=== PATIENT | female | born 1935 | race Asian ===

== ENCOUNTER 2019-06-22 15:48 | Inpatient (IN) | payer OTHER, MEDICAID ==
[~2019-06-22] VITALS: Ht 149.9 cm; Wt 45.4 kg
--- NOTE | 2019-06-22 14:15 | NUR ---
ADMIT NOTE The patient, MARGAUX KAPLAN, 83 y/o, F admitted by CLINTON LOPEZ MD, was given written information regarding hospital policies, unit procedures and contact persons. No valuable were checked in and daughter took everything home Patient awake, oriented x1. Oriented pt to bed, room, and call light. Daughter at bedside. No acute distress noted. Non-labored breathing. Clear lungs. Vital signs stable. Contracted on right leg. Bilateral weakness on upper extremities. Left leg sided weakness. Hemorroid present on anal area. 100% erythema. Skin intact. No odor. Discussed plan of care. All needs met. Call light in reach. Bed in lowest and locked position. Bed alarm on. Close to nursing station. Fall and aspiration precautions in place. Continue to monitor. Addendum: 06/22/19 at 1932 by Flora Maciel RN WRONG TIME, TIME SHOULD BE 1615
--- NOTE | 2019-06-22 16:30 | NUR ---
PAGED DR LOPEZ. WAITING FOR CALL BACK.
--- NOTE | 2019-06-22 17:00 | NUR ---
IV LINE INSERTED #22 G IV placed to LEFT FOREARM. Use of asceptic technique. Opsite placed over site. Blood return noted. FLUSHES FREELY. No evidence of infiltration noted. Patient tolerated. No acute distress noted.
[2019-06-22 17:21] VITALS: BP_SYST 118
--- NOTE | 2019-06-22 18:00 | NUR ---
PAGED DR LOPEZ. WEB MERCHANT DOCTOR PAGED. AWAITING FOR CALL BACK.
[2019-06-22] MEDS ORDERED: DENO60DI SQ (18:46)
[2019-06-22] MEDS ORDERED: FAMO20TA8 PO (18:46)
[2019-06-22] MEDS ORDERED: CLOP75TA32 PO (18:46)
[2019-06-22] MEDS ORDERED: ASPI-1155 PO (18:46)
[2019-06-22] MEDS ORDERED: ACET-73 PO (18:46)
[2019-06-22] MEDS ORDERED: ALLO100T PO (18:46)
[2019-06-22] MEDS ORDERED: LINA5TAB2 PO (18:46)
[2019-06-22] MEDS ORDERED: LIP40 PO (18:46)
[2019-06-22] MEDS ORDERED: INSU100V7 SUBCUT (18:46)
[2019-06-22] MEDS ORDERED: GLIM1TAB2 PO (18:46)
[2019-06-22] MEDS ORDERED: ANT30 PO (18:46)
[2019-06-22] MEDS ORDERED: ESCI10TA PO (18:46)
[2019-06-22] MEDS ORDERED: LISI2.5T48 PO (18:46)
[2019-06-22] MEDS ORDERED: CRAN200C PO (18:46)
[2019-06-22] MEDS ORDERED: MELA3TAB64 PO (18:46)
[2019-06-22] MEDS ORDERED: METO25TA6 PO (18:46)
[2019-06-22] MEDS ORDERED: MEMA21CA PO (18:46)
--- NOTE | 2019-06-22 19:00 | NUR ---
CLOSING NOTE PT AWAKE IN BED. DAUGHTER AT BEDSIDE. NO ACUTE DISTRESS NOTED. ASSISTED IN PERINEAL CARE. TOLERATED WELL. CHANGED LINENS. ALL NEEDS MET. CALL LIGHT IN REACH. BED ALARM ON. FALL AND ASPIRATION PRECAUTIONS IN PLACE. ENDORSED TO [place].
--- NOTE | 2019-06-22 19:15 | NUR ---
OPENING NOTES Late entry due to patient care. Bedside report received from dayshift nurse. Patient received lying in bed, eyes closed, appears to be asleep. No s/s of acute distress noted. Breathing even and unlabored. Patient's daughter, Aurelia, at bedside. Call light with patient. Bed alarm on. Will continue to monitor.
[2019-06-22 20:00] VITALS: BP_SYST 130
--- NOTE | 2019-06-22 20:45 | NUR ---
SPOKE WITH DR. LOPEZ Talked to Dr. Lopez, orders given to start NS at 70 ml/hr. Dr. Lopez stated she will put in the rest of the orders. Will carry out.
[2019-06-22] MEDS: NACL 0.9% 1,000 ML IV SCH (21:13)
--- NOTE | 2019-06-22 21:20 | NUR ---
INCONTINENT CARE/IVF RN assisted patient's daughter with incontinent care. Patient tolerated well. IV bag hung at this time, IVF infusing well. IV site patent, no signs of infiltration or infection noted. All needs met. Call light with patient. Bed alarm on. Will continue to monitor.
[2019-06-22] MEDS ORDERED: MAG-AL HYDROX/SIMETH 30 ML UDC PO SCH (22:30)
[2019-06-22] MEDS ORDERED: ALBUTEROL SULFATE 0.083% 2.5 MG/3 ML VIAL.NEB INH PRN (22:30)
--- NOTE | 2019-06-22 23:00 | NUR ---
ROUNDS Patient asleep. No s/s of acute distress noted. Breathing even and unlabored. IVF infusing well. Call light with patient. Bed alarm on. Will continue to monitor.
[2019-06-22 23:20] VITALS: BP_SYST 130
[2019-06-23] VITALS: BP_SYST 128
--- NOTE | 2019-06-23 01:00 | NUR ---
ROUNDS Patient in bed sleeping at this time. No signs of discomfort noted. Chest rise and fall even bilaterally. IVF infusing well. Call light with patient. Will continue to monitor.
--- NOTE | 2019-06-23 03:00 | NUR ---
IFEOMA CARE Patient cleaned by daughter, assisted by RN. All needs met at this time. Patient tolerated well. Call light with patient. Will continue to monitor.
--- NOTE | 2019-06-23 05:00 | NUR ---
ROUNDS Patient sleeping at this time. No signs of discomfort noted. Chest rise and fall even bilaterally. Call light with patient. Will continue to monitor.
--- NOTE | 2019-06-23 05:48 | NUR ---
SPEECH THERAPY STANLEY CALLED GABY martin)[phone] AND LEFT A VOICEMAIL WITH CALL BACK NUMBER.
[2019-06-23] MEDS: MEMANTINE HCL 5 MG TABLET PO SCH ×3 (06:21→21:28)
--- NOTE | 2019-06-23 06:41 | NUR ---
CLOSING NOTES Patient in bed, awake, no s/s of acute distress noted. Breathing even and unlabored. IVF infusing well. IV site is patent, no signs of infiltration or infection noted. Skin warm and dry to touch, no s/s of hypoglycemia noted. All needs met throughout the shift. Fall and safety precautions maintained throughout shift. Will continue to monitor until patient care is endorsed to oncoming dayshift nurse.
[2019-06-23 07:20] LABS: BASOPHILS # (AUTO) 0.1 K/uL (0.0-0.2); BASOPHILS % (AUTO) 0.5 % (0.0-2.0); EOSINOPHILS # (AUTO) 0.7 K/uL (0.0-0.4); EOSINOPHILS % (AUTO) 5.7 % (0.0-4.0); HEMATOCRIT 30.3 % (36-48); HEMOGLOBIN 9.8 g/dL (12.0-16.0); LYMPHOCYTES # (AUTO) 1.4 K/uL (1.0-5.5); LYMPHOCYTES % (AUTO) 11.4 % (20.5-51.5); MEAN CORPUSCULAR HEMOGLOBIN 29 pg (27-31); MEAN CORPUSCULAR HGB CONC 32 % (32-36); MEAN CORPUSCULAR VOLUME 89 fL (79.0-98.0); MONOCYTES # (AUTO) 0.7 K/uL (0.0-1.0); MONOCYTES % (AUTO) 5.6 % (1.7-9.3); NEUTROPHILS # (AUTO) 9.3 K/uL (1.8-7.7); NEUTROPHILS % (AUTO) 76.8 % (40.0-70.0); PLATELET COUNT (AUTO) 267 K/uL (130-430); RED CELL DISTRIBUTION WIDTH 15.8 % (9.0-15.0); WHITE BLOOD COUNT (AUTO) 12.1 K/uL (4.8-10.8)
--- NOTE | 2019-06-23 07:30 | NUR ---
Opening Notes Patient received lying comfortably in her bed, alert, awake and verbally responsive, respiration even and unlabored, daughter at bedside, denies any pain or discomfort at this time. IVF infusing well. Fall precaution observed, bed at lowest position, bed alarm on. Call light within the reach.
[2019-06-23 07:43] LABS: ALANINE AMINOTRANSFERASE 34 U/L (12-78); ALBUMIN 2.2 g/dL (3.4-4.8); ANION GAP 10 (5-15); ASPARTATE AMINOTRANSFERASE 26 U/L (10-37); CALCIUM 7.1 mg/dL (8.4-11.0); CHLORIDE 114 mmol/L (98-107); CREATININE 1.17 mg/dL (0.55-1.30); GLUCOSE 77 mg/dL (70-99); POTASSIUM 3.2 mmol/L (3.5-5.1); SODIUM SERUM 142 mmol/L (136-145); TOTAL BILIRUBIN 0.2 mg/dL (0.0-1.0); UREA NITROGEN, BLOOD 19 mg/dL (8-21)
[2019-06-23 08:06] VITALS: BP_SYST 141
--- NOTE | 2019-06-23 09:30 | NUR ---
RN ROUNDS Patient educated on medication usage and its potential side effects, all due medications given as ordered, well tolerated. Call light within the reach.
[2019-06-23] MEDS: CLOPIDOGREL BISULFATE 75 MG TABLET PO SCH (09:32)
[2019-06-23] MEDS: FAMOTIDINE 20 MG TABLET PO SCH (09:32)
[2019-06-23] MEDS: ALLOPURINOL 100 MG TABLET (ZYLOPRIM) PO SCH (09:32)
[2019-06-23] MEDS: ASPIRIN 81 MG TAB.CHEW PO SCH (09:32)
[2019-06-23] MEDS: CITALOPRAM HYDROBROMIDE 20 MG TABLET PO SCH (09:32)
[2019-06-23] MEDS: METOPROLOL TARTRATE 25 MG TABLET PO SCH (09:33)
--- NOTE | 2019-06-23 09:54 | NUR ---
Nutrition Update Jose Scale 13 noted. Pt admitted for dehydration Diet: batsheva FERREIRA BMI: 20.2 kg/m2 RD to follow per nutrition care standards.
[2019-06-23] MEDS: NACL 0.9% 1,000 ML IV SCH ×2 (10:59→21:40)
[2019-06-23 11:27] LABS: BILIRUBIN,URINE NEGATIVE (NEGATIVE); BLOOD, URINE 2+ (NEGATIVE); CLARITY/URINE CLOUDY (CLEAR); COLOR,URINE YELLOW (YELLOW); GLUCOSE,URINE NEGATIVE (NEGATIVE); KETONES,URINE NEGATIVE (NEGATIVE); LEUKOCYTE ESTERASE ,URINE 2+ (NEGATIVE); NITRITE, URINE NEGATIVE (NEGATIVE); PH,URINE 6.5 (5.0-8.0); PROTEIN URINE 2+ (NEGATIVE); UROBILINOGEN,URINE 0.2 (0.2-1.0)
--- NOTE | 2019-06-23 11:30 | NUR ---
blood sugar check patient's blood sugar is 149, no insulin coverage needed. No signs of hypoglycemia noted. Call light within the reach.
[2019-06-23 11:34] LABS: BACTERIA,URINE MODERATE /HPF (None Seen); WBC,URINE >100 /HPF (0-3)
[2019-06-23 12:20] VITALS: BP_SYST 129
--- NOTE | 2019-06-23 13:30 | NUR ---
RN ROUNDS Patient resting well, talking to her daughter at bedside, denies any pain or discomfort at this time. IVF infusing well. Call light within the reach.
[2019-06-23] MEDS ORDERED: POTASSIUM CHLORIDE 20 MEQ TAB.PRT.SR PO ONE (13:45)
--- NOTE | 2019-06-23 14:40 | NUR ---
CONSULTATION PAGED/CALLED Reason for Consultation: UTI Person Who was Notified: SPOKE WITH KENNETH FROM EXCHANGE . Consulting Physician: Porcelain Waxer Specialty: ID Ordering Physician: Debo MURGUIA
--- NOTE | 2019-06-23 15:30 | NUR ---
RN ROUNDS Patient remain to be alert, awake and verbally responsive, noted with confusion due to dementia, denies any pain or discomfort at this time. Daughter at bedside, call light within the reach.
[2019-06-23 16:15] VITALS: BP_SYST 136
--- NOTE | 2019-06-23 17:30 | NUR ---
Blood sugar check patient's blood sugar is 118, no insulin coverage noted. Call light within the reach.
--- NOTE | 2019-06-23 18:32 | NUR ---
Closing Notes Patient remain to be alert, awake and verbally responsive, denies any pain or discomfort at this time. IVF infusing well. Respiration even and unlabored. Daughter at bedside. Fall precaution observed. Call light within the reach. Will endorse to the next shift.
[2019-06-23] MEDS ORDERED: DIPHENHYDRAMINE INJ 50 MG/ML VIAL IVP SCH (18:45)
--- NOTE | 2019-06-23 19:15 | NUR ---
OPENING NOTES Late entry due to patient care. Bedside report received from dayshift nurse. Patient received lying in bed, awake, confused. No s/s of acute distress noted. Breathing even and unlabored. IVF infusing well. HOB raised. Patient's daughter, Aurelia, at bedside. Call light with patient. Bed alarm on. Will continue to monitor.
[2019-06-23 20:00] VITALS: BP_SYST 143
[2019-06-23] MEDS ORDERED: CEFEPIME 1 GM in D5W 50 ML IV SCH (21:00)
[2019-06-23] MEDS ORDERED: CEFEPIME 1 GM/VIAL (MAXIPIME) ONE (21:10)
[2019-06-23] MEDS: ATORVASTATIN 20 MG TABLET PO SCH (21:28)
--- NOTE | 2019-06-23 21:28 | NUR ---
ROUNDS/MAXIPIME ADMINISTERED Maxipime administered at this time per order. Patient and patient's daughter educated on its purpose and benefits and side effects. Patient's daughter verbalized understanding. Will monitor for reactions. Patient in bed, confused, awake, no s/s of acute distress, calm. Breathing even and unlabored. Call light with patient. Bed alarm on. Will continue to monitor.
--- NOTE | 2019-06-23 23:15 | NUR ---
FINISHED ANTIBIOTIC/PERICARE Antibiotic finished, no adverse reactions noted. Breathing even and unlabored. No s/s of acute distress noted. IVF infusing well. Phyllis care done by CHILD PSYCHOLOGY TEACHER and RN at this time, patient tolerated well. All needs met. Bed alarm on. Call light with patient. Will continue to monitor.
[2019-06-24 00:52] VITALS: BP_SYST 106
--- NOTE | 2019-06-24 01:00 | NUR ---
ROUNDS Patient asleep at this time. No signs of discomfort noted. Chest rise and fall even bilaterally. IVF infusing well. Bed alarm on. Will continue to monitor.
--- NOTE | 2019-06-24 03:00 | NUR ---
INCONTINENT CARE Incontinent care done by RN and CONTINUOUS IMPROVEMENT MANAGER. Patient tolerated well. All needs met. Bed alarm on. Will continue to monitor.
[2019-06-24] MEDS: MEMANTINE HCL 5 MG TABLET PO SCH ×3 (06:07→21:12)
--- NOTE | 2019-06-24 06:44 | NUR ---
CLOSING NOTES Patient in bed sleeping. No s/s of acute distress noted. Breathing even and unlabored. IVF infusing well. Skin warm and dry to touch. All needs met throughout shift. Fall and safety precautions maintained throughout shift. Will continue to monitor until patient care is endorsed to oncoming dayshift nurse.
--- NOTE | 2019-06-24 07:30 | NUR ---
Opening Notes Patient received lying comfortably in bed, alert, awake and verbally responsive, denies any pain or discomfort. IVF infusing well. Daughter at bedside. Call light within the reach.
[2019-06-24 08:55] LABS: BASOPHILS # (AUTO) 0.1 K/uL (0.0-0.2); BASOPHILS % (AUTO) 0.5 % (0.0-2.0); EOSINOPHILS # (AUTO) 0.5 K/uL (0.0-0.4); EOSINOPHILS % (AUTO) 4.3 % (0.0-4.0); HEMATOCRIT 29.1 % (36-48); HEMOGLOBIN 9.5 g/dL (12.0-16.0); LYMPHOCYTES % (AUTO) 9.9 % (20.5-51.5); MEAN CORPUSCULAR HEMOGLOBIN 29 pg (27-31); MEAN CORPUSCULAR HGB CONC 33 % (32-36); MEAN CORPUSCULAR VOLUME 90 fL (79.0-98.0); MONOCYTES # (AUTO) 0.6 K/uL (0.0-1.0); MONOCYTES % (AUTO) 5.7 % (1.7-9.3); NEUTROPHILS # (AUTO) 8.3 K/uL (1.8-7.7); NEUTROPHILS % (AUTO) 79.6 % (40.0-70.0); PLATELET COUNT (AUTO) 249 K/uL (130-430); RED BLOOD CELL COUNT(AUTO) 3.25 MIL/uL (4.2-6.2); WHITE BLOOD COUNT (AUTO) 10.4 K/uL (4.8-10.8)
[2019-06-24] MEDS: CITALOPRAM HYDROBROMIDE 20 MG TABLET PO SCH (08:55)
[2019-06-24] MEDS: ALLOPURINOL 100 MG TABLET (ZYLOPRIM) PO SCH (08:55)
[2019-06-24] MEDS: ASPIRIN 81 MG TAB.CHEW PO SCH (08:55)
[2019-06-24] MEDS: FAMOTIDINE 20 MG TABLET PO SCH (08:55)
[2019-06-24] MEDS: CLOPIDOGREL BISULFATE 75 MG TABLET PO SCH (08:55)
[2019-06-24] MEDS: METOPROLOL TARTRATE 25 MG TABLET PO SCH (08:56)
--- NOTE | 2019-06-24 09:00 | NUR ---
Medication administration educated patient on medication usage and its potential side effects, all due medications given as ordered, well tolerated, no signs and symptoms of adverse reactions noted at this time. Call light within the reach. Personal sitter at bedside.
[2019-06-24] MEDS: CEFEPIME 1 GM in D5W 50 ML IV SCH ×2 (09:11→21:12)
[2019-06-24 09:44] LABS: ANION GAP 10 (5-15); C-REACTIVE PROTEIN QUANT 0.9 mg/dL (0-0.5); CHLORIDE 115 mmol/L (98-107); CREATININE 1.15 mg/dL (0.55-1.30); GLUCOSE 130 mg/dL (70-99); POTASSIUM 3.4 mmol/L (3.5-5.1); SODIUM SERUM 140 mmol/L (136-145); UREA NITROGEN, BLOOD 13 mg/dL (8-21)
[2019-06-24 09:48] LABS: CALCIUM 6.8 mg/dL (8.4-11.0)
[2019-06-24 10:08] LABS: ERYTHROCYTE SEDIMENTATION RATE 59 MM/HR (0-20)
--- NOTE | 2019-06-24 10:26 | NUR ---
Low calcium level, Dr. Arzola aware Dr. Arzola at unit, notified regarding low calcium level with new order for calcium carbonate 1000mg BID, order read back, verified, noted and carried out.
[2019-06-24] MEDS ORDERED: CALCIUM CARBONATE 500 MG/ TAB.CHEW PO ONE (10:30)
[2019-06-24] MEDS ORDERED: GLUCOSE 15 GM GEL (in 37.5 GM TUBE) PO PRN (11:00)
[2019-06-24] MEDS ORDERED: D5W 1,000 ML IV PRN (11:00)
[2019-06-24] MEDS ORDERED: DEXTROSE 50%-WATER 50 ML DISP.SYRIN IVP PRN (11:00)
--- NOTE | 2019-06-24 12:00 | NUR ---
RN ROUNDS Patient remain to be alert, awake and verbally responsive, denies any pain or discomfort at this time. IVF infusing well. Personal sitter at bedside. Call light within the reach.
[2019-06-24 12:11] VITALS: BP_SYST 139
--- NOTE | 2019-06-24 14:30 | NUR ---
RN ROUNDS Resting well, respiration even and unlabored. IVF infusing well. No moaning or grimacing noted. No signs and symptoms of hypoglycemia or hyperglycemia noted. Call light within the reach.
[2019-06-24] MEDS: NACL 0.9% 1,000 ML IV SCH (14:31)
[2019-06-24 16:20] VITALS: BP_SYST 156
--- NOTE | 2019-06-24 16:30 | NUR ---
RN ROUNDS Patient respiration even and unlabored. Denies any pain or discomfort. IVF infusing well. Call light within the reach.
--- NOTE | 2019-06-24 19:15 | NUR ---
OPENING NOTES Bedside report received from dayshift nurse. Patient received lying in bed, awake, talking to caregiver. No s/s of acute distress noted. Breathing even and unlabored. IVF infusing well, IV site patent, no signs of infiltration or infection noted. Skin warm and dry to touch. SCDs attached and operating. Call light with patient. Bed alarm on. Bed is locked and at lowest position. Will continue to monitor.
--- NOTE | 2019-06-24 19:23 | NUR ---
Closing Notes Patient alert, awake and verbally responsive. Denies any pain or discomfort at this time. IVF infusing well. Respiration even and unlabored. Fall precaution observed, personal sitter at bedside. Call light within the reach. SBAR report given to damage cutterslot shift manager at bedside.
[2019-06-24 20:00] VITALS: BP_SYST 140
[2019-06-24] MEDS: ATORVASTATIN 20 MG TABLET PO SCH (21:12)
[2019-06-24] MEDS: CALCIUM CARBONATE 500 MG/ TAB.CHEW PO SCH (21:12)
[2019-06-24] MEDS: INSULIN LISPRO SLIDING SCALE 100 UNITS/ML VIAL (humaLOG) SUBCUT PRN (21:13)
--- NOTE | 2019-06-24 21:13 | NUR ---
MEDPASS/REFUSED INSULIN SCHEDULED MEDICATIONS GIVEN AT THIS TIME, PATIENT TOLERATED WELL. ACCUCHECK DONE, BS AT 172, PATIENT'S DAUGHTER REFUSED INSULIN AT THIS TIME, STATING SHE DIDNT HAVE MUCH FOR DINNER AND DOSE NOT WANT THE SUGAR TO GO DOWN TOO MUCH. ALL NEEDS MET AT THIS TIME. CALL LIGHT WITH PATIENT. BED ALARM ON. WILL CONTINUE TO MONITOR.
--- NOTE | 2019-06-24 23:00 | NUR ---
ROUNDS Patient in bed asleep at this time. No s/s of acute distress noted. Breathing even and unlabored. IVF infusing well. Patient's daughter sleeping at bedside. Call light with patient. Bed alarm on. SCDs attached and operating. Will continue to monitor.
[2019-06-25] VITALS: BP_SYST 145
--- NOTE | 2019-06-25 01:00 | NUR ---
PERICARE Patient received rodger care by RN at this time. Patient tolerated well. All needs met. IVF infusing well. Call light with patient. Bed alarm on. Will continue to monitor.
--- NOTE | 2019-06-25 03:00 | NUR ---
ROUNDS Patient in bed, sleeping comfortably at this time. No s/s of acute distress noted. Breathing even and unlabored. IVF infusing well. SCDs attached and operating. Bed alarm on. Will continue to monitor.
--- NOTE | 2019-06-25 04:58 | NUR ---
PERICARE Phyllis care done at this time by RN. Patient tolerated well. All needs met. Call light with patient. Bed alarm on. Will continue to monitor.
[2019-06-25] MEDS: NACL 0.9% 1,000 ML IV SCH ×3 (06:17→22:09)
[2019-06-25] MEDS: MEMANTINE HCL 5 MG TABLET PO SCH ×3 (06:17→22:05)
--- NOTE | 2019-06-25 06:29 | NUR ---
CLOSING NOTES Patient in bed sleeping at this time. No s/s of acute distress noted. Breathing even and unlabored. IVF infusing well. Skin warm and dry to touch. SCDs attached and operating. All needs met throughout shift. Fall and safety precautions maintained throughout shift. Will continue to monitor until patient care is endorsed to oncoming dayshift nurse.
[2019-06-25 07:41] LABS: ANION GAP 9 (5-15); C-REACTIVE PROTEIN QUANT 0.4 mg/dL (0-0.5); CHLORIDE 114 mmol/L (98-107); GLUCOSE 134 mg/dL (70-99); POTASSIUM 3.1 mmol/L (3.5-5.1); SODIUM SERUM 140 mmol/L (136-145); UREA NITROGEN, BLOOD 10 mg/dL (8-21)
[2019-06-25 07:43] LABS: CALCIUM 6.9 mg/dL (8.4-11.0)
--- NOTE | 2019-06-25 08:00 | NUR ---
received asleep and in no distress vss has visitor at bedside.turned and repositioned resp even and unlabored iv infusing as ordered.continue to monitor.call sosa in place.
[2019-06-25] MEDS: CLOPIDOGREL BISULFATE 75 MG TABLET PO SCH (08:16)
[2019-06-25] MEDS: CALCIUM CARBONATE 500 MG/ TAB.CHEW PO SCH ×2 (08:17→20:30)
[2019-06-25] MEDS: METOPROLOL TARTRATE 25 MG TABLET PO SCH (08:17)
[2019-06-25] MEDS: FAMOTIDINE 20 MG TABLET PO SCH (08:18)
[2019-06-25] MEDS: CITALOPRAM HYDROBROMIDE 20 MG TABLET PO SCH (08:18)
[2019-06-25] MEDS: ASPIRIN 81 MG TAB.CHEW PO SCH (08:18)
[2019-06-25] MEDS: ALLOPURINOL 100 MG TABLET (ZYLOPRIM) PO SCH (08:18)
[2019-06-25 08:45] LABS: BASOPHILS % (AUTO) 0.4 % (0.0-2.0); EOSINOPHILS # (AUTO) 0.4 K/uL (0.0-0.4); EOSINOPHILS % (AUTO) 3.8 % (0.0-4.0); HEMATOCRIT 29.5 % (36-48); HEMOGLOBIN 9.6 g/dL (12.0-16.0); LYMPHOCYTES # (AUTO) 1.1 K/uL (1.0-5.5); MEAN CORPUSCULAR HEMOGLOBIN 29 pg (27-31); MEAN CORPUSCULAR HGB CONC 33 % (32-36); MEAN CORPUSCULAR VOLUME 89 fL (79.0-98.0); MONOCYTES # (AUTO) 0.8 K/uL (0.0-1.0); MONOCYTES % (AUTO) 7.5 % (1.7-9.3); NEUTROPHILS # (AUTO) 7.9 K/uL (1.8-7.7); NEUTROPHILS % (AUTO) 77.3 % (40.0-70.0); PLATELET COUNT (AUTO) 235 K/uL (130-430); RED BLOOD CELL COUNT(AUTO) 3.31 MIL/uL (4.2-6.2); RED CELL DISTRIBUTION WIDTH 16.1 % (9.0-15.0); WHITE BLOOD COUNT (AUTO) 10.2 K/uL (4.8-10.8)
[2019-06-25 09:59] LABS: ERYTHROCYTE SEDIMENTATION RATE 53 MM/HR (0-20)
[2019-06-25] MEDS: CEFEPIME 1 GM in D5W 50 ML IV SCH ×2 (10:33→21:52)
[2019-06-25 11:50] VITALS: BP_SYST 143
[2019-06-25] MEDS: ACETAMINOPHEN 325 MG TABLET PO PRN ×2 (12:26→18:04)
--- NOTE | 2019-06-25 13:00 | NUR ---
c/o back pain and prn med given takes meds with applesauce repositioned in bed.visitor remains at bedside.vss resp even and unlabored continue to monitor
--- NOTE | 2019-06-25 14:32 | NUR ---
Nutrition Assessment (short note d/t lack of time) Admit Dx: Dehydration A- RD reviewed pt's current EMR including diet Hx, physician notes, nursing notes, pertinent labs/meds/procedures, care trends and care activity. RD Notification received. Pt seen sleeping in bed w/ sitter at bedside earlier today. Per sitter, pt only had 3 to 4 spoons of pureed diet for breakfast, Glucern untouched. Sitter also reported that pt is edentulous. Per huddle, pt is for swallow eval, awaiting results and ST rec. Nutrition education is not appropriate. Current Diet Order: Pureed CCHO diet x 2 days Ht: 4' Wt: 100#/ 45 kg BMI: 20.2 kg/m2 (underweight for age) %IBW: 105 IBW: 95#/ 43 kg ESTIMATED NUTRITIONAL REQUIREMENTS CALORIES/DAY: 9576-8268 kcal/day (25-30 kcal/kg CBW for maintenance) PROTEIN/DAY: 45-59 gm/day (1-1.3 gm/kg CBW for Geriatric maintenance) FLUID/DAY: 1.4 L/day (30ml/kg CBW for dehydration) D: Inadequate protein-calorie intake r/t difficulty chewing/swallowing AEB pending swallow eval and PO intake meeting <50% of est needs. I: Recommend diet/nutrition support per FACILITIES OPERATOR. M: Monitor provision of diet order/nutrition support, intake w/ goal of pt meeting at least 75% of estimated nutritional needs, labs trending WNL, normal GI function, skin integrity/wt maintenance. E: RD to F/U within 2-3 days LILI MAHMOOD
--- NOTE | 2019-06-25 14:35 | NUR ---
Dietitian Recommendation Recommend diet/nutrition support per PERSONAL INJURY SPECIALIST. ELA, RD
--- NOTE | 2019-06-25 15:35 | NUR ---
SS NOTE: STOPPER MAKER was referred by CM to see patient for DCP. Demographic information confirmed. STOPPER MAKER met with patient who had a 1:1 sitter, pt appeared to be confused. STOPPER MAKER phoned dtr and surrogate decision maker, Aurelia Yuliet ria @ [phone]. Per Aurelia, pt has been a [facility] resident with [facility] (1 year) after her stroke and is not a assisted pt. Prior to her admission at SNF, pt was semi-dependent and living at home. Pt's source of income is SSI, $900+/month. Dtr states pt does not have an advanced directive but has POLST, which Aurelia is the decisionmaker. Pt has history of depression "for a long time" and was diagnosed with dementia "a long time ago". Aurelia prefers the patient to be discharged back to [facility]. SS/CM will remain available when needed.
--- NOTE | 2019-06-25 18:01 | NUR ---
S.T. SWALLOW EVAL SWALLOW EVAL COMPLETED. CAREGIVER AT BEDSIDE. PT PRESENTS W/ GENERALLY FUNCTIONAL OROPHARYNGEAL SWALLOW FOR PUREE AND THIN/THICK LIQUIDS. NO S/S OF ASPIRATION. HOWEVER, THERE'S RISK FOR MALNUTRITION AND DEHYDRATION D/T PT'S DECREASED INTEREST FOR P.O. REC: PUREE DIET. THIN LIQUIDS OK. MONITOR FOR ADEQUATE P.O. INTAKE. NURSE ASIF NOTIFIED. G8996 CK G8997 CK G8998 CK NOMS LEVEL 4
[2019-06-25 18:22] VITALS: BP_SYST 146
--- NOTE | 2019-06-25 19:08 | NUR ---
pt in no distress resting report to night rn given
--- NOTE | 2019-06-25 19:20 | NUR ---
CHANGE OF SHIFT; pt. awake, alert but confused. pt. daughter at bedside. HOB elevated. IVF infusing via left forearm. denies any apin at this time. will reassess later. pt. room close to nurses station. unable to use call light, frequent rounds.
[2019-06-25 20:30] VITALS: BP_SYST 153
[2019-06-25] MEDS: ATORVASTATIN 20 MG TABLET PO SCH (20:30)
--- NOTE | 2019-06-25 20:30 | NUR ---
NOTES: pt. VS checked. repositioned, cleaned up, rodger care with HEATING TECHNICIAN, pt. incontinent of urine.
--- NOTE | 2019-06-25 21:00 | NUR ---
NOTES: pt. medications crushed with apple sauce, tolerated ok, daughter feeding her with some soft bread.
--- NOTE | 2019-06-25 21:30 | NUR ---
NOTES: BS checked, no sliding scale needed. IV site slightly reddened, will observe for now. pt. daughter will stay for the night.
--- NOTE | 2019-06-25 22:59 | NUR ---
NOTES: pt. sleeping when checked with baby doll at her side.
--- NOTE | 2019-06-26 00:30 | NUR ---
NOTES: pt. sleeping when checked. condition observed.
[2019-06-26 00:38] VITALS: BP_SYST 135
--- NOTE | 2019-06-26 02:40 | NUR ---
NOTES: pt. daughter said she called, pt. incontinent of urine. rodger care done by her, helped change pad and their personal diaper, repositioned and turn to sides. kept warm with blanket.
[2019-06-26] MEDS: MEMANTINE HCL 5 MG TABLET PO SCH ×2 (05:08→13:24)
--- NOTE | 2019-06-26 05:14 | NUR ---
NOTES: incontinent of urine with small BM. rodger care done and repositioned with daughter's help. due medication given.
--- NOTE | 2019-06-26 05:57 | NUR ---
NOTES: pt. with rt. sided weakness due to stroke. IVF patent. bed alarm on.
--- NOTE | 2019-06-26 06:20 | NUR ---
CLOSING NOTES; pt. sleeping ,no acute distress. pt. daughter at bedside. IVF patent. pt. needs attended. for further care and assist. fall risk precautions, bed alarm on. will endorse to day shift nurse.
--- NOTE | 2019-06-26 07:30 | NUR ---
opening note patient is resting in bed, visitor at the bedside, language barrier present, educated occupational health nurse supervisor light system and plan of care, patient did not give me a verbal response, she just stared at me, no signs of distress at this time, IV site secured with IVF running and patient is tolerating well, no other needs addressed at this time, brake armed, bed alarm on, side rails up, call light within reach, room close to station, fall/safety precautions in place.
[2019-06-26 08:00] VITALS: BP_SYST 136
[2019-06-26] MEDS: CEFEPIME 1 GM in D5W 50 ML IV SCH (09:11)
[2019-06-26] MEDS: CALCIUM CARBONATE 500 MG/ TAB.CHEW PO SCH (09:11)
[2019-06-26] MEDS: METOPROLOL TARTRATE 25 MG TABLET PO SCH (09:12)
[2019-06-26] MEDS: ALLOPURINOL 100 MG TABLET (ZYLOPRIM) PO SCH (09:12)
[2019-06-26] MEDS: FAMOTIDINE 20 MG TABLET PO SCH (09:12)
[2019-06-26] MEDS: CLOPIDOGREL BISULFATE 75 MG TABLET PO SCH (09:12)
[2019-06-26] MEDS: ASPIRIN 81 MG TAB.CHEW PO SCH (09:12)
[2019-06-26] MEDS: CITALOPRAM HYDROBROMIDE 20 MG TABLET PO SCH (09:12)
[2019-06-26 09:30] VITALS: BP_SYST 135
--- NOTE | 2019-06-26 10:39 | NUR ---
Discharge Planning: DCP faxed pt referral to [facility] (f [phone] p [phone]) DCP to follow up Addendum: 06/26/19 at 1209 by Kassandra Salguero DP [facility] (f [phone] p [phone]) 5B, Care ([phone]) 6:30pm P/U CM and nurse aware. Patient packet taken to nurse station.
--- NOTE | 2019-06-26 10:45 | NUR ---
rounds patient is resting in bed, visitor at the bedside, watching tv, has her own stuffed doll at the bedside, no signs of distress at this time, no other needs addressed at this time, fall/safety precautions in place, IVF running and patient is tolerating well.
--- NOTE | 2019-06-26 11:17 | NUR ---
provider network mgr: Case mgt: S/W dtr Aurelia at [phone] re: dc to SNF--I informed her [facility] has a bed--she is agreeable for transfer to snf but not until family arrives from airport to see pt here at 1530-Aurelia doesn't want pt transferred until they see her this afternoon. DC Hai Cannon informed to set up transfer for 6:00 pm or later--MONICA GIBSON
[2019-06-26] MEDS: INSULIN LISPRO SLIDING SCALE 100 UNITS/ML VIAL (humaLOG) SUBCUT PRN (11:20)
--- NOTE | 2019-06-26 12:20 | NUR ---
rounds patient is resting in bed, visitor at the bedside going to feed patient, watching tv, no signs of distress at this time, no other needs addressed at this time, fall/safety precautions in place, IVF running and patient is tolerating well.
[2019-06-26 12:54] VITALS: BP_SYST 143
--- NOTE | 2019-06-26 14:53 | NUR ---
rounds patient is resting in bed, visitor at the bedside going to feed patient, watching tv, no signs of distress at this time, no other needs addressed at this time, fall/safety precautions in place, IVF running and patient is tolerating well, informed visitor about DC planning for today for patient, they verbalized understanding.
--- NOTE | 2019-06-26 16:40 | NUR ---
rounds patient is resting in bed, visitors at the bedside going to feed patient, watching tv, no signs of distress at this time, no other needs addressed at this time, fall/safety precautions in place, IVF running and patient is tolerating well, updated daughters on DC planning to tonight, will be going back to [facility], pickup 1830, they verbalized understanding.
[2019-06-26 16:56] VITALS: BP_SYST 135
[2019-06-26] MEDS: NACL 0.9% 1,000 ML IV SCH (18:20)
--- NOTE | 2019-06-26 18:40 | NUR ---
PT TRANSFERRED Report given to Sunil at [facility]. Transfer packet with Transfer Orders and Medication Reconciliation form given to EMT with report. Exitcare provided. [facility] ID band removed, replaced with ID band with pt's name and . IV catheter NOT removed, intact. All belongings sent with patient. Patient left floor via gurney escorted by EMT in no distress.
--- NOTE | 2019-07-02 14:12 | NUR ---
PHYSICAL THERAPY CO-SIGN The Physical Therapy Progress Notes documented by Heavy Duty Diesel Mechanic have been reviewed. Reviewed/Co-Signed by: Som Quiñones PT Documentation Done by: DOUGLAS CAVAZOS PTA Addendum: 07/02/19 at 1413 by Som Quiñones PT Amended: Links added.
== END 2019-06-26 18:40 | DRG 640 ==
LOC: SMU 16:45
PROVIDERS: ADMIT Internal Medicine; ATTEND Internal Medicine
DX: E86.0 Dehydration (principal); E43 Unspecified severe protein-calorie malnutrition; N39.0 Urinary tract infection, site not specified; I69.354 Hemiplegia and hemiparesis following cerebral infarction affecting left non-dominant side; I69.351 Hemiplegia and hemiparesis following cerebral infarction affecting right dominant side; R65.10 Systemic inflammatory response syndrome (SIRS) of non-infectious origin without acute organ dysfunction; E11.9 Type 2 diabetes mellitus without complications; I10 Essential (primary) hypertension; E78.5 Hyperlipidemia, unspecified; E83.51 Hypocalcemia; E87.6 Hypokalemia; R13.10 Dysphagia, unspecified; D64.9 Anemia, unspecified; Z96.652 Presence of left artificial knee joint; Z83.3 Family history of diabetes mellitus; Z88.0 Allergy status to penicillin; Z88.2 Allergy status to sulfonamides; Z88.1 Allergy status to other antibiotic agents; Z68.20 Body mass index [BMI] 20.0-20.9, adult
CPT/HCPCS: 36415; 71045; 80048; 80053; 81000-TC; 82962; 85025; 85651-TC; 86140; 87081; 87086; 87186-TC; 92610-GN; 97110-GP; 97530-GP; J0692; J1200; J7030; J7060